=== PATIENT | male | born 1995 | race Caucasian/White ===

== ENCOUNTER 2018-11-08 22:46 | Emergency (ER) | payer SELFPAY ==
[2018-11-08] VITALS (16 sets, daily range): BP systolic 109–132; BP diastolic 63–90; PULSE 89–107; RESP 7–16; TEMP 37; O2SAT 90–100
--- NOTE | 2018-11-08 22:56 | ED.GENADUL_ITS ---
Discharge Plan Disposition Patient Disposition: AGAINST MEDICAL ADVICE Condition: Stable Discharge Details Chief Complaint: OD/Poison Clinical Impression: Accidental heroin overdose Reason For Visit: KATRIN Primary Care Provider: [facility] Provider: Henrry Marshall Home Meds and New Rx's Prescriptions: No Action No Known Home Meds RF: 0 Discharge Instructions Instructions: Narcotic Abuse (ED) Discharge Data Discharge Date/Time-TO BE ENTERED AT DEPARTURE: 11/09/18 01:02 Medical Decision Making Patient here with accidental heroin overdose. He is sleepy but arousable. His pupils are pinpoint. His speech is slurred. I am not going to give him Narcan. He is breathing. His saturations are low so we will put him on oxygen with end-tidal CO2 monitoring. I will observe him until his mental status comes back to normal. Patient's girlfriend did eventually arrive. Patient elected to leave AGAINST MEDICAL ADVICE without me speaking to him as I was involved in a trauma resuscitation. He was awake and alert and coherent. He apparently was limping per ED staff but did not have this evaluated by me as she did not wait for reevaluation when he was more awake. HPI General Mode of arrival: EMS . Date/Time Provider Initiated Documentation: 11/08/18 22:56 . Limitations to Documentation: altered mental status . Information obtained by: patient and EMS . HPI Narrative: Patient is brought in by EMS after accidental heroin overdose. Patient had been clean for 2 years. Today he shot up 2 bags of heroin at approximately 9 PM. He also had about a half a can of beer. He was found by his girlfriend cyanotic. EMS was called. He did not receive any intervention. He arrives here sleepy but able to stay awake for conversation to some degree. He has no complaints of. This was accidental and not intentional. Related Data Home Medications Medication Instructions Recorded Confirmed Unknown [No Known Home Meds] 11/08/18 11/08/18 Allergies Allergy/AdvReac Type Severity Reaction Status Date / Time Penicillins Allergy Unknown Unverified 11/08/18 23:02 Sulfa (Sulfonamide Allergy Unknown Unverified 11/08/18 23:02 Antibiotics) General Stated Complaint: OD/Poison NICOLLE: 4 Review of Systems Constitutional Denies fever(s), Denies headache(s) and Denies weakness ENT Denies headache(s) and Denies neck pain Cardiovascular Denies chest pain, Denies palpitations and Denies dyspnea Respiratory Denies dyspnea Gastrointestinal Denies abdominal pain, Denies nausea and Denies vomiting Musculoskeletal Denies back pain, Denies neck pain and Denies numbness Integumentary/Breasts Denies erythema Neurologic Denies headache(s), Denies numbness and Denies weakness Psychiatric Denies depression, Denies homicidal ideation and Denies suicidal ideation Endocrine Denies palpitations [facility] Social History Smoking/Tobacco Use Status: Current every day Exam Const General: no acute distress Limitations: altered mental status [facility] Head: normocephalic and atraumatic Eyes Pupils: pinpoint (minimally reactive) Neck Neck: trachea midline and supple Resp Effort & Inspection: normal respiratory effort Auscultation: clear to auscultation bilaterally Cardio Rate: regular rate Rhythm: regular rhythm Heart Sounds: S1 normal and S2 normal Skin General skin exam: no erythema Neuro General: oriented x3, no focal motor deficits, CN's II-XI intact bilaterally and other (Sleepy but arousable) Psych Speech and Movement: slurred speech Thought Process: normal Thought Content: normal Course Vital Signs Temperature 98.6 F 11/08/18 22:46 Pulse 102 H 11/08/18 22:46 Respiratory Rate 16 11/08/18 22:46 Blood Pressure 127/90 11/08/18 22:46 Pulse Oximetry 95 11/08/18 22:46 Temperature 98.6 F 11/08/18 22:46 Temperature Source Skin 11/08/18 22:46 Pulse 102 H 11/08/18 22:46 Respiratory Rate 16 11/08/18 22:46 Respiratory Effort Non-Labored 11/08/18 22:50 Blood Pressure 127/90 11/08/18 22:46 Blood Pressure Position Sitting 11/08/18 22:46 Pulse Oximetry 95 11/08/18 22:46 Oxygen Delivery Method Room Air 11/08/18 22:46 Oxygen Flow Rate 0 11/08/18 22:46
[2018-11-09] VITALS: BP 122/87; PULSE 94; PULSE 96; RESP 9; O2SAT 99
[2018-11-09 00:01] VITALS: PULSE 94; RESP 20; O2SAT 100
[2018-11-09 00:10] VITALS: PULSE 90; RESP 12; O2SAT 99
[2018-11-09 00:16] VITALS: BP 113/68; PULSE 83; PULSE 94; RESP 22; O2SAT 97
--- NOTE | 2018-11-09 02:49 | NUR.NOTE ---
Nursing Note: patient didnt want to jose any longer for the dr. so he signed an AMA ,,,crystal
== END 2018-11-09 01:02 | disposition left against medical advice (07) ==
PROVIDERS: Emergency Provider Emergency Medicine
DX: T40.1X1A Poisoning by heroin, accidental (unintentional), initial encounter (principal); Z53.29 Procedure and treatment not carried out because of patient's decision for other reasons
CPT/HCPCS: 99283